=== PATIENT | female | born 1975 | race Caucasian/White ===

== ENCOUNTER 2017-02-23 00:26 | Observation (INO) | payer BC ==
[~2017-02-23] VITALS: Ht 177.8 cm; Wt 142.4 kg
[~2017-02-23 00:26] MED LIST: ACET-1966 PO; ALB18R INH; ALBU2.5V36 INH; AMOX-559 PO; ATEN-65 PO; AZIT-17 PO; BENZ100C4 PO; BUSP10TA95 PO; BUTA1TAB14 PO; CETI-176 PO; CITA-139 PO; FLUT1AER INH; KETO30CA16 IM; NAPR375T44 PO; NYST15CR32 TP; ONDA4TAB PO; ONDA8TAB94 PO; OXYC-865 PO; PRED-1 PO; PRED20TA6 PO; Return to work; SUMA50TA34 PO; TRAM-420 PO; TRIA15CR40 TP; Work Note; [UNRECOGNIZED DRUG - OTHER]; ceFAZolin(*) 2GM/D5W 50ML 50 ML IVPB ONE
[2017-02-23] MEDS ORDERED: ceFAZolin(*) 2GM/D5W 50ML 50 ML IVPB ONE (06:30)
[2017-02-23] MEDS ORDERED: METOCLOPRAMIDE 10 MG/2 ML SDV ONE (06:52)
[2017-02-23] MEDS ORDERED: LIDOCAINE MPF 1% 5 ML VIAL ONE (06:52)
[2017-02-23] MEDS ORDERED: PROPOFOL EMUL(*) 10MG/ML 20 ML 40 ML ONE (06:52)
[2017-02-23] MEDS ORDERED: DEXAMETHASONE SOD 4 MG/ML VIAL ONE (06:52)
[2017-02-23] MEDS ORDERED: ONDANSETRON 4 MG/2 ML VIAL ONE (06:52)
[2017-02-23] MEDS ORDERED: ROCURONIUM BROM 10 MG/ML 10 ML ONE (06:52)
[2017-02-23] MEDS ORDERED: fentaNYL CITR 100 MCG/2 ML AMP ONE ×3 (06:56→11:23)
[2017-02-23 07:08] VITALS: BP 129/77
[2017-02-23] MEDS ORDERED: LIDOCAINE/SOD BICARB 8.4% SYR ID ONE (07:20)
[2017-02-23] MEDS ORDERED: MIDAZOLAM 2 MG/2 ML VIAL IVP ONE (07:20)
[2017-02-23] MEDS ORDERED: FAMOTIDINE 20 MG TAB PO ONE (07:20)
[2017-02-23] MEDS ORDERED: NORMOSOL R SOLN(*) 1000 ML BAG 1,000 ML IV PRN (07:20)
--- NOTE | 2017-02-23 07:37 | EKG ---
FACILITY: [facility] PATIENT NAME: IZZY CORNEJO : [id number] MR: [id number] V: [id number] EXAM DATE: ORDERING PHYSICIAN: PAULINA FISHER TECHNOLOGIST: Martell Mercer Reason : Blood Pressure : / mmHG Vent. Rate : 066 BPM Atrial Rate : 066 BPM P-R Int : 140 ms QRS Dur : 082 ms QT Int : 426 ms P-R-T Axes : 021 003 013 degrees QTc Int : 446 ms Normal sinus rhythm with sinus arrhythmia Normal ECG No previous ECGs available Confirmed by GRIS SANFORD ([id number]) on 02/23/2017 2:56:49 PM Referred By: Confirmed By:GRIS SANFORD
[2017-02-23] MEDS ORDERED: LIDO/EPI 1% MDV 1:100,000 20ML INFIL ONE (08:09)
[2017-02-23] MEDS ORDERED: SUCCINYLCHOL CHL 100MG/5ML SYR IVP ONE (08:30)
[2017-02-23] MEDS ORDERED: LIDOCAINE 2% IV 100 MG/5ML SYR ONE (10:15)
[2017-02-23] MEDS ORDERED: LR(*) 1000 ML BAG 1,000 ML IV PRN (10:44)
[2017-02-23] MEDS ORDERED: ONDANSETRON 4 MG ODT TABDP SL PRN (10:45)
[2017-02-23] MEDS ORDERED: MORPHINE 2 MG/ML SYR IVP PRN (10:45)
--- NOTE | 2017-02-23 10:51 | Post Operative Note ---
Operative Note - ENT Operative Day Date: Feb 23, 2017 Physicians Surgeon: Fernando Anesthesia: GETA Diagnosis Pre-Op Diagnosis: Graves disease Post-Op Diagnosis: same Procedure Procedure(s): Total thyroidectomy Fluids Estimated Blood Loss: 100 ml IVET MRECADO JR, MD Feb 23, 2017 10:51
[2017-02-23 12:05] VITALS: BP 124/73
[2017-02-23] MEDS ORDERED: CETIRIZINE HCL 10 MG TAB PO PRN (14:05)
[2017-02-23] MEDS ORDERED: ceFAZolin(*) 1 GM VIAL 1 GM in NS(*) 0.9% 100 ML ADDVANT BAG 100 ML IVPB SCH (17:00)
[2017-02-23] MEDS: ceFAZolin 1 GM VIAL IVP SCH (17:42)
[2017-02-23 19:20] VITALS: BP 109/61
[2017-02-23] MEDS: CALCIUM CARBONATE 500 MG CHEW PO SCH (20:40)
[2017-02-23 20:41] VITALS: BP 110/53
[2017-02-23] MEDS: busPIRone HCL 5 MG TAB PO SCH (20:41)
[2017-02-24] MEDS: ceFAZolin 1 GM VIAL IVP SCH ×2 (00:17→09:23)
[2017-02-24 04:06] VITALS: BP 102/62
[2017-02-24 07:35] VITALS: BP 94/55
[2017-02-24] MEDS: CALCIUM CARBONATE 500 MG CHEW PO SCH ×3 (07:56→20:57)
[2017-02-24] MEDS: CITALOPRAM HYDROBROM 20 MG TAB PO SCH (07:56)
--- NOTE | 2017-02-24 08:09 | ENT Progress Note ---
Subjective Progress Notes Subjective POD #1 s/p total thyroidectomy. Pain controlled. Catina reg diet. No new concerns. Physical Exam Vital Signs Date Time Temp Pulse Resp B/P (MAP) Pulse Ox O2 Delivery O2 Flow Rate FiO2 02/24/17 04:12 91 Nasal Cannula 0.5 02/24/17 04:06 98.8 73 12 102/62 (75) General Appearance: Alert, No Acute Distress ENT: Other (steris intact, SAMY intact with ss output, no collection) Ca 7.6 Assessment and Plan Problems: (1) Hypocalcemia Assessment & Plan: Patient with normal PTH but calcium drop this morning. Will continue Tums and recheck calcium this afternoon. Plan discharge home pending stable calcium. (2) Graves disease Status: Acute Exam Sepsis Risk: No Definite Risk JESS EARL,IVET Quijano MD Feb 24, 2017 08:09
[2017-02-24] MEDS: PATIENT'S OWN MED INH SCH (09:00)
[2017-02-24] MEDS: ATENOLOL 25 MG TAB PO SCH (09:00)
[2017-02-24 09:10] VITALS: Ht 177.8 cm; Wt 142.4 kg
[2017-02-24] MEDS: busPIRone HCL 5 MG TAB PO SCH ×2 (09:23→20:56)
[2017-02-24] MEDS ORDERED: ONDA4TAB PO (10:21)
[2017-02-24 14:17] VITALS: BP 109/66
[2017-02-24] MEDS: CALCITRIOL 0.25 MCG CAP PO SCH ×2 (14:50→20:56)
[2017-02-24 19:16] VITALS: BP 113/62
--- NOTE | 2017-02-24 20:04 | OPERATIVE REPORT 1 ---
EVENT DATE: February 23, 2017 SURGEON: Huy King MD ANESTHESIOLOGIST: Moses Vargas MD ANESTHESIA: General endotracheal. CHROME POLISHER: Rebecca Payne PREOPERATIVE DIAGNOSIS Graves disease. POSTOPERATIVE DIAGNOSIS Graves disease. PROCEDURE PERFORMED Total thyroidectomy. INDICATIONS Please refer to the preoperative note. DESCRIPTION OF PROCEDURE The patient was positively identified in the preoperative area. She was accompanied there by her . The risks were again explained, but were not limited to bleeding, infection, injury to the recurrent laryngeal nerves, transient or permanent dysphonia, injury to the parathyroid glands, transient or permanent hypocalcemia, and those associated with anesthesia. She acknowledged understanding of those risks. She was then brought back to the operative suite and laid supine on the operative table, and anesthesia was administered. Once the patient was induced , she was prepped and draped in the usual sterile fashion. Of note, the laryngeal nerve monitor was applied to the patient and utilized throughout the case. A favorable neck crease was identified overlying the thyroid gland. An approximately 7 cm incision was then planned and marked. Approximately 2 mL of 1% lidocaine with epinephrine were infiltrated. The aforementioned incision was then made with a 15 blade. The underlying subcutaneous tissue was then dissected with Bovie electrocautery. The platysma muscle was encountered and divided with Bovie electrocautery. Subplatysmal flaps were elevated superiorly to the level of the thyroid notch and inferiorly to the level of the sternal notch. The strap musculature was identified, and this was divided into the long and median raphe. I began with the right lobe. Sternal musculature was carefully elevated off of this. The superior lobe vessels were then skeletonized and then coming across with the Harmonic scalpel. I carefully dissected the lobe from the surrounding connective tissue. Both parathyroid glands were felt to be identified and left in situ. The recurrent laryngeal nerve was identified and confirmed with the nerve monitor. This nerve was followed and chased into its entrance into the trachea. I then came across the inferior lobe vessels with the Harmonic scalpel. The lobe was then rotated medially and divided from the trachea at Wetzel ligament. I then proceeded with the contralateral lobe in a similar fashion. The strap musculature was elevated off of it. The superior lobe vessels were skeletonized and then coming across with the Harmonic scalpel. I then carefully dissected the lobe from the surrounding connective tissue. Both parathyroid glands were felt to be identified and preserved in situ. The recurrent laryngeal nerve was identified and confirmed with the probe. This was chased to its entrance into the trachea. I then came across the inferior lobe vessels with the Harmonic scalpel. The lobe was then rotated medially and divided from the trachea at Wetzel ligament. The specimen was then marked and sent for permanent pathology. The wound was then copiously irrigated with normal saline solution. Valsalva maneuvers were performed. Hemostasis was assumed. Surgicel Fibrillar was placed in the bilateral wound beds. A Dave-Pang drain was placed and secured to the skin with a suture. The platysma and strap musculature were then closed with interrupted chromic stitch. The incision was then closed in a multilayer fashion. The patient was then turned to Anesthesia for emergence. Estimated blood loss was 100 mL. There were no complications. MTDD
[2017-02-24] MEDS: CEFUROXIME AXETIL 250 MG TAB PO SCH (20:57)
[2017-02-25 07:38] VITALS: BP 120/69
--- NOTE | 2017-02-25 08:01 | Hospitalist Depart ---
Discharge Summary Reason for Hosp/Final Diag: (1) Hypocalcemia Hospital Course & Plan: Patient status post total thyroidectomy 02/23. Postoperative hypocalcemia now stable on calcium and rocaltrol. (2) Graves disease Status: Acute Departure Weight (Pounds): 314 Condition: Improved Discharge: Home Time Spent: < 30 min Discharge Instructions Home Meds Active Scripts Ondansetron (ZOFRAN ODT) 4 Mg Tab.rapdis, 1 TAB PO Q12H Y for NAUSEA, #8 TAB.GLENYS 0 Refills Prov:CRIS MONTGOMERY DNP, [facility]- 02/24/17 Citalopram Hydrobromide (CITALOPRAM HBR) 20 Mg Tablet, 1 TAB PO QDAY, #90 TAB 3 Refills Prov:CRIS MONTGOMERY DNP [facility]- 01/13/17 Sumatriptan Succinate (IMITREX) 50 Mg Tablet, 50 MG PO ONCE, #9 TAB 3 Refills Take 1 tablet at onset of migraine. Repeat 1 tablet in 2 hours if necessary. Do not take more than 2/24 hours. Prov:CRIS MONTGOMERY DNP [facility]- 11/18/16 Atenolol (ATENOLOL) 25 Mg Tablet, 1 TAB PO QDAY, #90 TAB 1 Refill Prov:CRIS MONTGOMERY DNP [facility]- 11/18/16 Fluticasone/Vilanterol 100/25 Mcg/Inh (BREO ELLIPTA 100/25 MCG) 1 Each Aer.pow.ba, 1 INH INH QDAY, #1 INH 11 Refills Prov:CRIS MONTGOMERY DNP [facility]- 09/17/16 Reported Medications Acetaminophen (TYLENOL) 325 Mg Tablet, 325 MG PO PRN, TAB 12/26/16 Cetirizine Hcl (ZYRTEC) 10 Mg Tablet, 10 MG PO QDAY Y for ALLERGY SYMPTOMS, TAB 12/26/16 Albuterol Sulfate (VENTOLIN HFA) 18 Gm Inh, 2 PUFF INH Q4-6H Y for CONGESTION, INH 09/02/16 Buspirone Hcl (BUSPIRONE HCL) 10 Mg Tablet, 10 MG PO BID, #20 TAB 09/02/16 Diet: Regular Activity: No Heavy Lifting, No Exertion Special Instructions: Follow up visit next Thursday. No lifting over 15 lbs. Do not soak steris. May shower. JESS EARL,IVET Quijano MD Feb 25, 2017 08:01
[2017-02-25] MEDS ORDERED: CEFU250T11 PO (08:03)
[2017-02-25] MEDS ORDERED: PER PO (08:03)
[2017-02-25] MEDS: CITALOPRAM HYDROBROM 20 MG TAB PO SCH (08:19)
[2017-02-25] MEDS: CALCIUM CARBONATE 500 MG CHEW PO SCH (08:19)
[2017-02-25] MEDS: busPIRone HCL 5 MG TAB PO SCH (08:20)
[2017-02-25] MEDS: ATENOLOL 25 MG TAB PO SCH (08:20)
[2017-02-25] MEDS: CEFUROXIME AXETIL 250 MG TAB PO SCH (08:20)
[2017-02-25] MEDS: PATIENT'S OWN MED INH SCH (08:21)
[2017-02-25] MEDS ORDERED: CA C1TAB6 PO (09:02)
[2017-02-25] MEDS: CALCITRIOL 0.25 MCG CAP PO SCH (09:20)
[2017-02-26] MEDS ORDERED: CALC-515 PO (12:50)
[2017-02-26] MEDS ORDERED: CALC0.5C9 PO (12:50)
== END 2017-02-25 07:59 | disposition home or self-care (01) ==
LOC: OR 00:26 → MED 12:10
PROVIDERS: ADMIT Otolaryngology; ATTEND Otolaryngology
DX: E05.00 Thyrotoxicosis with diffuse goiter without thyrotoxic crisis or storm (principal); I10 Essential (primary) hypertension
CPT/HCPCS: 36415; 60240; 81025; 82310; 83735; 83970; 88307; 93005; G0378; J0330; J0690; J1100; J2001; J2250; J2405; J2704; J2765; J3010

== ENCOUNTER 2017-02-26 11:14 | Emergency (ER) | payer BC ==
[2017-02-24 09:10] VITALS: Ht 177.8 cm; Wt 142.4 kg
[~2017-02-26] VITALS: Ht 177.8 cm; Wt 142.4 kg
[~2017-02-26 11:14] MED LIST changes: +CA C1TAB6 PO; +CEFU250T11 PO; +PER PO; -ceFAZolin(*) 2GM/D5W 50ML 50 ML IVPB ONE
--- NOTE | 2017-02-26 11:25 | ER Report ---
History and Physical Time Seen By MD: 11:24 Hx. of Stated Complaint: PT POST SURGERY FROM THYROIDECTOMY AND IS HAVING TINGLING IN FINGERS, HANDS, AND ARMS. HPI/ROS CHIEF COMPLAINT: Cramping in the fingers and toes HISTORY OF PRESENT ILLNESS: This is a 42-year-old female who presents to the emergency department for tingling and cramping in her fingers and toes. Patient is status-post thyroidectomy 4 days [address] Mercado. Patient states the surgery went well however since the surgery she has had an increase in cramping in her fingers and toes. The cramping does move up into the forearms and then resolves. Dr. Mercado did give us a call today asking us to see her do some basic blood work in addition to calcium and replete her calcium as indicated. Patient has no other complaints at this time no nausea, vomiting, diarrhea, aches, chills no fevers, no urinary discomfort or diarrhea. Surgical site showing no signs of infection. REVIEW OF SYSTEMS: Respiratory: No cough, no dyspnea. Cardiovascular: No chest pain, no palpitations. Gastrointestinal: No vomiting, no abdominal pain. Musculoskeletal: As above. Allergies: Coded Allergies: hydrocodone (Verified Allergy, Severe, ANAPHYLAXIS, 02/26/17) nickel (Verified Allergy, Unknown, 02/26/17) latex (Verified Adverse Reaction, Unknown, RASH, 02/26/17) Uncoded Allergies: HAYFEVER (Allergy, Mild, CONGESTION, SNEEZING, 12/26/16) Home Meds Active Scripts Calcitriol (ROCALTROL) 0.5 Mcg Capsule, 1 CAP PO BID, #28 CAPSULE Prov:IVET MERCADO JR, MD 02/26/17 Oxycodone/Acetaminophen (OXYCODONE/ACETAMINOPHEN 5MG/325 MG) 5 Mg/325 Mg Tab, 1 TAB PO Q4H Y for MILD TO MODERATE PAIN for 7 Days, #15 TAB Prov:IVET MERCADO JR, MD 02/25/17 Cefuroxime Axetil (CEFUROXIME) 250 Mg Tablet, 500 MG PO BID for 7 Days, #14 TAB Prov:IVET MERCADO JR, MD 02/25/17 Ondansetron (ZOFRAN ODT) 4 Mg Tab.rapdis, 1 TAB PO Q12H Y for NAUSEA, #8 TAB.GLENYS 0 Refills Prov:CRIS MONTGOMERY DNP, OSTEOPATHIC NEUROLOGIST-BC 02/24/17 Citalopram Hydrobromide (CITALOPRAM HBR) 20 Mg Tablet, 1 TAB PO QDAY, #90 TAB 3 Refills Prov:CRIS MONTGOMERY DNP, [facility] 01/13/17 Sumatriptan Succinate (IMITREX) 50 Mg Tablet, 50 MG PO ONCE, #9 TAB 3 Refills Take 1 tablet at onset of migraine. Repeat 1 tablet in 2 hours if necessary. Do not take more than 2/24 hours. Prov:CRIS MONTGOMERY DNP, [facility] 11/18/16 Fluticasone/Vilanterol 100/25 Mcg/Inh (BREO ELLIPTA 100/25 MCG) 1 Each Aer.pow.ba, 1 INH INH QDAY, #1 INH 11 Refills Prov:CRIS MONTGOMERY DNP, [facility] 09/17/16 Reported Medications Calcium Carbonate (TUMS) 200 Mg Tab.chew, 2 TAB PO TID, TAB.CHEW 02/26/17 Acetaminophen (TYLENOL) 325 Mg Tablet, 325 MG PO PRN, TAB 12/26/16 Cetirizine Hcl (ZYRTEC) 10 Mg Tablet, 10 MG PO QDAY Y for ALLERGY SYMPTOMS, TAB 12/26/16 Albuterol Sulfate (VENTOLIN HFA) 18 Gm Inh, 2 PUFF INH Q4-6H Y for CONGESTION, INH 09/02/16 Buspirone Hcl (BUSPIRONE HCL) 10 Mg Tablet, 10 MG PO BID, #20 TAB 09/02/16 Discontinued Scripts Atenolol (ATENOLOL) 25 Mg Tablet, 1 TAB PO QDAY, #90 TAB 1 Refill Prov:ULISESCRIS FLORES DNP, [facility] 11/18/16 Past Medical/Surgical History Patient has a past medical and surgical history of migraines, heart palpitations , Graves' disease, on beta blockers, bronchitis, asthma, IBS, diarrhea, cervical biopsy, polyps, right arm fracture, right ankle fracture, lower back pain, with glasses and contacts, thyroidectomy, hyperthyroidism, Graves' disease , depression, ADHD, wisdom teeth extraction. Reviewed Nurses Notes: Yes Hx Smoking: Yes (1 CIGARETT PER DAY FOR 1 YEAR. ) Smoking Status: Former Smoker Exposure to Second Hand Smoke?: Yes (HUSBA [place] SMOKES) Hx Substance Use Disorder: No Hx Alcohol Use: No Constitutional Vital Sign - Last 24 Hours 02/26/17 02/26/17 02/26/17 02/26/17 11:17 11:18 11:30 11:44 Temp 98.1 Pulse 84 75 Resp 18 B/P (MAP) 132/83 (99) 132/83 124/79 (94) Pulse Ox 92 87 O2 Delivery Room Air 02/26/17 02/26/17 02/26/17 02/26/17 11:50 11:59 12:04 12:19 Pulse 70 70 72 Pulse Ox 91 91 90 O2 Flow Rate 1.0 02/26/17 02/26/17 02/26/17 02/26/17 12:34 12:49 13:04 13:19 Pulse 66 67 67 Pulse Ox 92 90 89 89 02/26/17 02/26/17 02/26/17 13:34 13:43 13:49 Pulse 62 64 B/P (MAP) 115/86 (96) Pulse Ox 91 91 Intake and Output 02/26/17 02/26/17 02/27/17 15:00 23:00 07:00 Intake Total 110 ml Balance 110 ml Physical Exam General Appearance: The patient is alert, has no immediate need for airway protection and no current signs of toxicity. Eyes: Pupils equal and round no injection. Respiratory: Chest is non tender, lungs are clear to auscultation. Cardiac: regular rate and rhythm, no murmurs, clicks or rubs. Gastrointestinal: Abdomen is soft and non tender, no masses, bowel sounds normal. Musculoskeletal: Neck: Neck is supple and non tender. Extremities have full range of motion and are non tender. Positive Trousseau sign. Skin: Healing scar to anterior neck, no erythema, no discharge, covered with steri strips. DIFFERENTIAL DIAGNOSIS: After history and physical exam differential diagnosis was considered for anxiety, hypocalcemia, hyperventilation. Medical Decision Making Data Points Result Diagram: 02/26/17 1141 02/26/17 1141 Laboratory Hematology Test 02/26/17 11:41 Red Blood Count 5.48 M/uL (4.17-5.56) Mean Corpuscular Volume 74.8 fL (80.0-96.0) Mean Corpuscular Hemoglobin 24.0 pg (26.0-33.0) Mean Corpuscular Hemoglobin Concent 32.0 g/dL (32.0-36.0) Red Cell Distribution Width 18.1 % (11.5-14.5) Mean Platelet Volume 8.4 fL (7.2-11.1) Neutrophils (%) (Auto) 69.9 % (39.4-72.5) Lymphocytes (%) (Auto) 23.0 % (17.6-49.6) Monocytes (%) (Auto) 3.6 % (4.1-12.4) Eosinophils (%) (Auto) 2.4 % (0.4-6.7) Basophils (%) (Auto) 1.1 % (0.3-1.4) Nucleated RBC Relative Count (auto) 0.0 /100WBC Neutrophils # (Auto) 7.4 K/uL (2.0-7.4) Lymphocytes # (Auto) 2.4 K/uL (1.3-3.6) Monocytes # (Auto) 0.4 K/uL (0.3-1.0) Eosinophils # (Auto) 0.2 K/uL (0.0-0.5) Basophils # (Auto) 0.1 K/uL (0.0-0.1) Nucleated RBC Absolute Count (auto) 0.00 K/uL Sodium Level 139 mmol/L (137-145) Potassium Level 3.7 mmol/L (3.5-5.0) Chloride Level 101 mmol/L (98-107) Carbon Dioxide Level 28 mmol/L (22-31) Blood Urea Nitrogen 11 mg/dl (7-18) Creatinine 0.80 mg/dl (0.52-1.04) Glomerular Filtration Rate Calc > 60.0 Random Glucose 92 mg/dl (75-110) Calcium Level 6.8 mg/dl (8.4-10.2) Magnesium Level 1.4 mg/dl (1.7-2.2) Total Bilirubin 0.4 mg/dl (0.2-1.3) Aspartate Amino Transf (AST/SGOT) 18 U/L (0-35) Alanine Aminotransferase (ALT/SGPT) 23 U/L (0-56) Alkaline Phosphatase 90 U/L (0-126) Total Protein 6.4 gm/dl (6.3-8.2) Albumin 3.3 g/dl (3.5-5.0) Chemistry Test 02/26/17 11:41 White Blood Count 10.5 k/uL (4.5-11.0) Red Blood Count 5.48 M/uL (4.17-5.56) Hemoglobin 13.1 g/dL (12.0-16.0) Hematocrit 41.0 % (34.0-47.0) Mean Corpuscular Volume 74.8 fL (80.0-96.0) Mean Corpuscular Hemoglobin 24.0 pg (26.0-33.0) Mean Corpuscular Hemoglobin Concent 32.0 g/dL (32.0-36.0) Red Cell Distribution Width 18.1 % (11.5-14.5) Platelet Count 251 K/uL (150-450) Mean Platelet Volume 8.4 fL (7.2-11.1) Neutrophils (%) (Auto) 69.9 % (39.4-72.5) Lymphocytes (%) (Auto) 23.0 % (17.6-49.6) Monocytes (%) (Auto) 3.6 % (4.1-12.4) Eosinophils (%) (Auto) 2.4 % (0.4-6.7) Basophils (%) (Auto) 1.1 % (0.3-1.4) Nucleated RBC Relative Count (auto) 0.0 /100WBC Neutrophils # (Auto) 7.4 K/uL (2.0-7.4) Lymphocytes # (Auto) 2.4 K/uL (1.3-3.6) Monocytes # (Auto) 0.4 K/uL (0.3-1.0) Eosinophils # (Auto) 0.2 K/uL (0.0-0.5) Basophils # (Auto) 0.1 K/uL (0.0-0.1) Nucleated RBC Absolute Count (auto) 0.00 K/uL Glomerular Filtration Rate Calc > 60.0 Calcium Level 6.8 mg/dl (8.4-10.2) Magnesium Level 1.4 mg/dl (1.7-2.2) Total Bilirubin 0.4 mg/dl (0.2-1.3) Aspartate Amino Transf (AST/SGOT) 18 U/L (0-35) Alanine Aminotransferase (ALT/SGPT) 23 U/L (0-56) Alkaline Phosphatase 90 U/L (0-126) Total Protein 6.4 gm/dl (6.3-8.2) Albumin 3.3 g/dl (3.5-5.0) EKG/Imaging EKG Interpretation 12 lead EKG: Rhythm: Normal sinus rhythm, 81 bpm. [place]: normal QRS: normal ST segments: No acute ST abnormalities. No significant changes from the 02/23/2017 EKG. ED Course/Re-evaluation Clinical Indication for ER IV: IV Access ED Course The patient was admitted to a room. History and physical were obtained. Differential diagnoses were considered. An IV was started. A CBC, CMP, calcium, magnesium were obtained. Calcium was 6.8 and the rest of the lab studies unremarkable. Patient was given 1 g of calcium gluconate IV. Patient was given 0.50 g calcitriol by mouth. Patient states she was feeling much better after the calcium was infused, patient had no other questions or concerns at this time. I did speak with Dr. Mercado as noted below. Dr. Mercado's nurse did call the patient and changed prescriptions, the patient will follow up Thursday.. Patient had no other questions or concerns and was discharged home. Patient was also encouraged to return to emergency Department with any other concerns she may have. 02/26/2017 12:17:04 pm I did speak with Dr. Mercado and he said go ahead and administer 0.25 g of calcitriol orally and his nurse Flor will call the patient and change her vitamin D and calcium prescriptions. Decision to Disposition Date: Feb 26, 2017 Decision to Disposition Time: 13:52 Depart Departure Latest Vital Signs Vital Signs Date Time Temp Pulse Resp B/P (MAP) Pulse Ox O2 Delivery O2 Flow Rate FiO2 02/26/17 13:49 64 91 02/26/17 13:43 115/86 (96) 02/26/17 11:50 1.0 02/26/17 11:18 98.1 18 Room Air Impression: Primary Impression: Hypocalcemia Additional Impression: S/P thyroidectomy Condition: Improved Disposition: HOME OR SELF-CARE Referrals: CRIS MONTGOMERY DNP, OSTEOPATHIC NEUROLOGIST-BC (PCP) Patient Instructions: Hypocalcemia (ED), Total Thyroidectomy (DC) Additional Instructions: Drink plenty of fluids. Get plenty of rest. If you have not heard from Dr. Mercado's nurse by 3pm today, call his office to follow up. Continue with your current medications. May return to the emergency department for any other concerns or worsening symptoms. Problem Qualifiers VINCENZO PALAFOX OSTEOPATHIC NEUROLOGIST-BC Feb 26, 2017 11:25
[2017-02-26 11:50] LABS: PLATELET COUNT, AUTOMATED 251 K/uL (150-450)
[2017-02-26] MEDS ORDERED: CALCIUM GLUC(*)10% 100MG/ML VL 1,000 MG in NS(*) 0.9% 100 ML BAG 100 ML IVPB ONE (12:05)
[2017-02-26] MEDS ORDERED: CALCITRIOL 0.25 MCG CAP PO SCH (12:15)
[2017-02-26] MEDS ORDERED: CALC-515 PO (12:50)
[2017-02-26] MEDS ORDERED: CALC0.5C9 PO (12:50)
[2017-02-26 13:43] VITALS: BP 115/86
--- NOTE | 2017-02-26 13:48 | EKG ---
FACILITY: [facility] PATIENT NAME: IZZY CORNEJO : [id number] MR: [id number] V: [id number] EXAM DATE: ORDERING PHYSICIAN: VINCENZO PALAFOX TECHNOLOGIST: ANN Mercer Reason : LOW CA Blood Pressure : / mmHG Vent. Rate : 071 BPM Atrial Rate : 071 BPM P-R Int : 152 ms QRS Dur : 082 ms QT Int : 448 ms P-R-T Axes : 029 010 017 degrees QTc Int : 486 ms Normal sinus rhythm with sinus arrhythmia Low voltage QRS Prolonged QT Abnormal ECG When compared with ECG of 23-FEB-2017 07:08, No significant change was found Confirmed by GRIS SANFORD ([id number]) on 02/27/2017 2:32:04 AM Referred By: Confirmed By:GRIS SANFORD
[2017-03-02] MEDS ORDERED: LEVO150T72 PO (15:31)
== END 2017-02-26 14:02 | disposition home or self-care (01) ==
LOC: ER 11:18
DX: E83.51 Hypocalcemia (principal); E89.0 Postprocedural hypothyroidism
CPT/HCPCS: 36415; 83735; 85025; 93005; 96365; 96366; 99283; J0610; J7050; 82040; 82247; 82310; 82374; 82435; 82565; 82947; 84075; 84132; 84155; 84295; 84450; 84460; 84520

== ENCOUNTER → 2017-03-02 | Outpatient (CLI) | payer BC ==
[2017-02-24 09:10] VITALS: BMI 45.0
[~2017-03-02] MED LIST changes: +CALC-515 PO; +CALC0.5C9 PO; +LEVO150T72 PO
== END ==
LOC: LAB 08:06
PROVIDERS: ATTEND Otolaryngology
DX: E83.51 Hypocalcemia (principal)
CPT/HCPCS: 36415; 82310

== ENCOUNTER → 2017-03-09 | Outpatient (CLI) | payer BC ==
[2017-02-24 09:10] VITALS: BMI 45.0
== END ==
LOC: LAB 08:01
PROVIDERS: ATTEND Otolaryngology
DX: E83.51 Hypocalcemia (principal)
CPT/HCPCS: 36415; 82310

== ENCOUNTER 2017-03-16 17:33 | Emergency (ER) | payer BC ==
[2017-02-24 09:10] VITALS: Ht 177.8 cm; Wt 142.4 kg
[~2017-03-16] VITALS: Ht 177.8 cm; Wt 142.4 kg
[2017-03-16 19:05] VITALS: BP 136/89
[2017-03-17] MEDS ORDERED: GUAI120L3 PO (09:09)
[2017-03-17] MEDS ORDERED: PRED20TA6 PO (09:09)
[2017-03-17] MEDS ORDERED: DOXY-179 PO (09:09)
[2017-03-17] MEDS ORDERED: ALBU2.5V36 INH (09:11)
[2017-03-24] MEDS ORDERED: Work Note (09:51)
[2017-03-24] MEDS ORDERED: ALBU2.5V36 INH ×2 (09:59→10:05)
== END 2017-03-16 19:54 | disposition left against medical advice (07) ==
LOC: ER 19:20
DX: R05 Cough (principal)

== ENCOUNTER → 2017-03-17 | Outpatient (CLI) | payer BC ==
[2017-02-24 09:10] VITALS: BMI 45.0
[~2017-03-17] MED LIST changes: +DOXY-179 PO; +GUAI120L3 PO
== END ==
LOC: LAB 08:23
PROVIDERS: ATTEND Otolaryngology
DX: E83.51 Hypocalcemia (principal)
CPT/HCPCS: 36415; 82310

== ENCOUNTER → 2017-03-24 | Outpatient (CLI) | payer BC ==
[2017-02-24 09:10] VITALS: BMI 45.0
[2017-03-24 10:08] LABS: PLATELET COUNT, AUTOMATED 308 K/uL (150-450)
--- NOTE | 2017-03-24 11:09 | RADIOLOGY IMAGING REPORT ---
FACILITY: [facility] [place] PATIENT NAME: Marianna Glover : 1975 MR: [id number] V: [id number] EXAM DATE: ORDERING PHYSICIAN: CRIS MONTGOMERY TECHNOLOGIST: Location: [facility] Patient: Marianna Glover : 1975 Visit/Account:[id number] Date of Sevice: 03/24/2017 EXAMINATION: PA and Lateral Chest 03/24/2017 10:09 AM HISTORY: Cough x1 week, chest tightness COMPARISON: None FINDINGS: Cardiomediastinal contours: Normal Lungs and pleura: Normal Bones/soft tissues: Rounded just over 1 cm density projects just below the anterior end of the right sixth rib on the frontal view, not well localized in the lateral projection. IMPRESSION: 1. Rounded just over 1 cm density projecting over the right upper quadrant on the frontal view. Thi s is possibly external artifact such as simply a button. Calcification such as a fibroadenoma in the breast would be possible. Hepatic calcification or even a stone within an ectopic gallbladder might be possible. If this is a basilar lung nodule not well seen in the lateral this would presumptively be a granuloma. My suspicion that this is clinically significant is low. 2. Otherwise unremarkable chest. Report Dictated By: Bairon Farr MD at 03/24/2017 11:00 AM Report E-Signed By: Bairon Farr MD at 03/24/2017 11:04 AM WSN:[email or web address]
== END ==
LOC: RAD 09:43
PROVIDERS: ATTEND Nurse Practitioner Primary Care
DX: R05 Cough (principal)
CPT/HCPCS: 36415; 71046; 82040; 82247; 82310; 82374; 82435; 82565; 82947; 84075; 84132; 84155; 84295; 84450; 84460; 84520; 85025

== ENCOUNTER → 2017-04-29 | Outpatient (CLI) | payer BC ==
[2017-02-24 09:10] VITALS: BMI 45.0
[~2017-04-29] MED LIST changes: +OMEP-125 PO; +RANI150C17 PO; +SINCALIDE 5 MCG VIAL INJ ONE; +WATER FOR INJ,STERILE 20 ML 20 ML ONE
--- NOTE | 2017-04-29 11:19 | RADIOLOGY IMAGING REPORT ---
[place] [facility] [place]: Marianna Glover : 1975 MR: [id number] V: [id number] EXAM DATE: ORDERING PHYSICIAN: CRIS MONTGOMERY TECHNOLOGIST: Location: [facility] [place] Patient: Marianna Glover : 1975 Visit/Account:[id number] Date of Sevice: 04/29/2017 Nuclear Medicine HIDA Scan with Kinevac Stimulation INDICATION: Right upper quadrant pain COMPARISON STUDIES: None available TECHNIQUE: 6.2 mCi Tc99m mebrofenin was injected intravenously. Multiple sequential gamma camera mireya ges of the abdomen were obtained for 60 minutes. At that time, Kinevac was injected intravenously and an additional 30 minutes of gamma camera imaging data was acquired. A computer-generated region of i nterest was placed around the gallbladder and time-activity curve for the gallbladder was derived. Th e gallbladder ejection fraction was calculated. FINDINGS: Liver uptake and excretion: normal Time to appearance: Bile ducts: 6 minutes. Gallbladder: 7 minutes. Duodenum: 40 minutes. Post IV Kinevac: 30 minute images following the injection of CCK demonstrate minimal decrease in the radiopharmaceu tical activity overlying the gallbladder. Ejection fraction = 31 %, (normal range > 35%). IMPRESSION: 1. Gallbladder ejection fraction is mildly abnormal at 31%. The findings can be seen with etiologie s such as dyskinesia or chronic cholecystitis. Report Dictated By: Daniel Christian MD at 04/29/2017 11:07 AM Report E-Signed By: Daniel Christian MD at 04/29/2017 11:13 AM WSN:[email or web address]
== END ==
LOC: NUC 01:54
PROVIDERS: ATTEND Nurse Practitioner Primary Care
DX: R93.2 Abnormal findings on diagnostic imaging of liver and biliary tract (principal)
CPT/HCPCS: 78226; A9537; J2805

== ENCOUNTER → 2017-05-01 | Outpatient (CLI) | payer BC ==
[2017-02-24 09:10] VITALS: BMI 45.0
[~2017-05-01] MED LIST changes: -SINCALIDE 5 MCG VIAL INJ ONE; -WATER FOR INJ,STERILE 20 ML 20 ML ONE
[2017-05-01 13:46] LABS: PLATELET COUNT, AUTOMATED 263 K/uL (150-450)
--- NOTE | 2017-05-01 17:11 | RADIOLOGY IMAGING REPORT ---
FACILITY: [facility] [place] PATIENT NAME: Marianna Glover : 1975 MR: [id number] V: [id number] EXAM DATE: ORDERING PHYSICIAN: CRIS MONTGOMERY TECHNOLOGIST: Location: [facility] Patient: Marianna Glover : 1975 Visit/Account:[id number] Date of Sevice: 05/01/2017 EXAMINATION: Limited right upper quadrant ultrasound 05/01/2017 3:38 PM HISTORY: RUQ abdominal pain. COMPARISON STUDIES: HIDA scan with cholecystokinin 04/29/2017 FINDINGS: Gallbladder: no stones or sludge. Liver: Borderline prominent. Mildly increased echogenicity. No cirrhotic features sonographically. Common duct: 4 to 5 mm Pancreas: negative Right kidney: 1.4 cm parapelvic cyst in the mid to upper aspect. Upper abdominal aorta and IVC: negative Ascites: none IMPRESSION: 1. No acute abnormality of the gallbladder or biliary ductal system. 2. Mild fatty liver. Report Dictated By: Bairon Farr MD at 05/01/2017 5:03 PM Report E-Signed By: Bairon Farr MD at 05/01/2017 5:06 PM WSN:[id number]
== END ==
LOC: LAB 13:22
PROVIDERS: ATTEND Nurse Practitioner Primary Care
DX: K76.0 Fatty (change of) liver, not elsewhere classified (principal); N28.1 Cyst of kidney, acquired
CPT/HCPCS: 36415; 76705; 82040; 82150; 82247; 82310; 82374; 82435; 82565; 82947; 83690; 84075; 84132; 84155; 84295; 84450; 84460; 84520; 85025; 86677

== ENCOUNTER → 2017-05-20 | Outpatient (CLI) | payer BC ==
[2017-02-24 09:10] VITALS: BMI 45.0
== END ==
LOC: LAB 10:51
PROVIDERS: ATTEND Nurse Practitioner Primary Care
DX: R10.11 Right upper quadrant pain (principal); K76.0 Fatty (change of) liver, not elsewhere classified
CPT/HCPCS: 36415; 82728; 83540; 83550; 86677; 86704; 86706; 86708; 86709; 86803; 87340

== ENCOUNTER 2017-06-04 01:55 | Day surgery (SDC) | payer BC ==
[2017-02-24 09:10] VITALS: Ht 177.8 cm; Wt 144.2 kg
[~2017-06-04] VITALS: Ht 177.8 cm; Wt 144.2 kg
[2017-06-04] VITALS (8 sets, daily range): BP systolic 112–131; BP diastolic 79–89
[~2017-06-04 01:55] MED LIST changes: +AMPICILLIN/SULBACT (*) 3 GM VL 3 GM in NS(*) 0.9% 100 ML BAG 100 ML IVPB ONE; +INDOCYANINE GREEN 25 MG VIAL IVP ONE
[2017-06-04] MEDS ORDERED: DEXAMETHASONE SOD 4 MG/ML VIAL ONE (08:07)
[2017-06-04] MEDS ORDERED: METOCLOPRAMIDE 10 MG/2 ML SDV ONE (08:07)
[2017-06-04] MEDS ORDERED: ONDANSETRON 4 MG/2 ML VIAL ONE (08:07)
[2017-06-04] MEDS ORDERED: LIDOCAINE MPF 1% 5 ML VIAL ONE (08:07)
[2017-06-04] MEDS ORDERED: PROPOFOL EMUL(*) 10MG/ML 20 ML 40 ML ONE (08:07)
[2017-06-04] MEDS ORDERED: fentaNYL CITR 250 MCG/5 ML AMP ONE (08:11)
[2017-06-04] MEDS ORDERED: SUGAMMADEX SOD 500 MG/5 ML SDV ONE (08:30)
[2017-06-04 08:31] LABS: PLATELET COUNT, AUTOMATED 291 K/uL (150-450)
[2017-06-04] MEDS ORDERED: FAMOTIDINE 20 MG TAB PO ONE (08:50)
[2017-06-04] MEDS ORDERED: NORMOSOL R SOLN(*) 1000 ML BAG 1,000 ML IV PRN (08:50)
[2017-06-04] MEDS ORDERED: AMPICILLIN/SULBACT (*) 3 GM VL 3 GM in NS(*) 0.9% 100 ML BAG 100 ML IVPB ONE (08:50)
[2017-06-04] MEDS ORDERED: LIDOCAINE/SOD BICARB 8.4% SYR ID ONE (08:50)
[2017-06-04] MEDS ORDERED: INDOCYANINE GREEN 25 MG VIAL IVP ONE (08:50)
[2017-06-04] MEDS ORDERED: ROPIVACAINE 0.5% 20 ML VIAL ONE (09:43)
[2017-06-04] MEDS ORDERED: MIDAZOLAM 2 MG/2 ML VIAL IVP PRN (10:20)
[2017-06-04] MEDS ORDERED: ACETAMINOPHEN(*)1000 MG/100 ML 100 ML IVPB ONE (10:24)
[2017-06-04] MEDS ORDERED: DOCU-416 PO (12:23)
[2017-06-04] MEDS ORDERED: OXYC-854 PO (12:23)
[2017-06-04] MEDS ORDERED: fentaNYL CITR 100 MCG/2 ML AMP ONE ×2 (12:23→12:37)
--- NOTE | 2017-06-04 12:27 | Short(Outpt) Discharge Summary ---
Discharge Summary Reason for Hosp/Final Diag: (1) Biliary dyskinesia Status: Chronic Hospital Course & Plan: Robotic cholecystectomy and lysis of adhesions completed without problems. Departure Discharge to: Home, Self Care Discharge Instructions Home Meds Active Scripts Docusate Sodium (COLACE) 100 Mg Capsule, 1 CAP PO BID, #30 CAP 0 Refills TAKE WITH A FULL GLASS OF WATER Prov:GRIS CRUZ MD 06/04/17 Oxycodone Hcl/Acet 5/325 Mg (ENDOCET 5-325 TABLET) 1 Each Tablet, 1-2 TAB PO Q4H Y for PAIN, #30 TAB 0 Refills Prov:GRIS CRUZ MD 06/04/17 Ondansetron (ZOFRAN ODT) 4 Mg Tab.rapdis, 1 TAB PO Q12H Y for NAUSEA, #8 TAB.GLENYS 3 Refills Prov:CRIS MONTGOMERY DNP, FNP-BC 05/29/17 Albuterol Sulfate (VENTOLIN HFA) 18 Gm Inh, 2 PUFF INH Q4-6H Y for CONGESTION, # 1 INH 5 Refills Prov:CRIS MONTGOMERY DNP, FNP-BC 04/14/17 Buspirone Hcl (BUSPIRONE HCL) 10 Mg Tablet, 1 TAB PO BID, #180 TAB 3 Refills Prov:CRIS MONTGOMERY DNP, FNP-BC 04/14/17 Albuterol Sulfate 0.083% (ALBUTEROL SULFATE 0.083%) 2.5 Mg/3 Ml Vial.neb, 2.5 MG INH 2-3XD Y for WHEEZING, #30 INH 0 Refills Prov:CRIS MONTGOMERY DNP, FNP-BC 03/24/17 Levothyroxine Sodium (SYNTHROID) 150 Mcg Tablet, 150 MCG PO QDAY for 90 Days, # 90 TAB Prov:IVET MERCADO JR, MD 03/02/17 Citalopram Hydrobromide (CITALOPRAM HBR) 20 Mg Tablet, 1 TAB PO QDAY, #90 TAB 3 Refills Prov:CRIS MONTGOMERY DNP, FNP-BC 01/13/17 Sumatriptan Succinate (IMITREX) 50 Mg Tablet, 50 MG PO ONCE, #9 TAB 3 Refills Take 1 tablet at onset of migraine. Repeat 1 tablet in 2 hours if necessary. Do not take more than 2/24 hours. Prov:CRIS MONTGOMERY DNP, STOCK HANDLER-BC 11/18/16 Fluticasone/Vilanterol 100/25 Mcg/Inh (BREO ELLIPTA 100/25 MCG) 1 Each Aer.pow.ba, 1 INH INH QDAY, #1 INH 11 Refills Prov:CRIS MONTGOMERY DNP, ST[employer]-BC 09/17/16 Reported Medications Acetaminophen (TYLENOL) 325 Mg Tablet, 325 MG PO PRN, TAB 12/26/16 Discontinued Reported Medications Calcium Carbonate (TUMS) 200 Mg Tab.chew, 2 TAB PO TID, TAB.CHEW 02/26/17 Cetirizine Hcl (ZYRTEC) 10 Mg Tablet, 10 MG PO QDAY Y for ALLERGY SYMPTOMS, TAB 12/26/16 Discontinued Scripts Ranitidine Hcl (RANITIDINE HCL) 150 Mg Capsule, 1 CAP PO QDAY for 10 Days, #10 CAPSULE 0 Refills Prov:CRIS MONTGOMERY DNP, STOCK HAND[employer]ER-BC 05/01/17 Omeprazole (OMEPRAZOLE) 20 Mg Capsule.dr, 1 CAP PO BID for 30 Days, #60 CAP 1 Refill Prov:CRIS MONTGOMERY DNP, STOCK HAND[employer]ER-BC 05/01/17 Calcitriol (ROCALTROL) 0.5 Mcg Capsule, 1 CAP PO BID, #28 CAPSULE Prov:IVET MERACDO JR, MD 02/26/17 Follow up Referrals: General Surgery - 06/23/17 @ Surgery, General with Gris Cruz Md You have a follow up appointment scheduled with Dr. Cruz on 06/23/17, at 11: 45am. Diet: Regular Activity: No Heavy Lifting Special Instructions: You may remove the white surgical dressings on 06/06/17, then you can shower. After showering, leave the incisions open to air but leave the steristrips in place until they fall off on their own. Do not immerse the incisions for 2 weeks. Avoid any activity that involves straining or lifting more than 10 pounds for 2 weeks. GRIS CRUZ MD Jun 04, 2017 12:27
[2017-06-04] MEDS ORDERED: PROMETHAZINE 25 MG/ML 1 ML AMP ONE (12:40)
--- NOTE | 2017-06-04 12:43 | Post Operative Progress Note ---
Post Operative Progress Note Date: Jun 04, 2017 Time: 12:27 Surgeon: Anthony Dictation number: [id number] Anesthesia: GETA by Dr. Vargas Pre-Op Diagnosis: Postprandial RUQ abdominal pain Biliary dyskinesia Post-Op Diagnosis: FREDERICK Findings: None Procedure(s): Robotic adhesiolysis and cholecystectomy Specimen Removed:(May be N/A): GB and contents Complications: None Fluids: See anesthesia record Estimated Blood Loss: Minimal Date OP Note Dictated: Jun 04, 2017 Time OP Note Dictated: 12:29 GRIS VALDEZ MD Jun 04, 2017 12:43
--- NOTE | 2017-06-04 18:53 | OPERATIVE REPORT 1 ---
EVENT DATE: June 04, 2017 SURGEON: Mert Cruz MD ANESTHESIOLOGIST: Mert Vargas MD ANESTHESIA: General endotracheal anesthesia. PREOPERATIVE DIAGNOSES 1. Postprandial right upper quadrant abdominal pain. 2. Biliary dyskinesia, ejection fraction of 31% on HIDA. POSTOPERATIVE DIAGNOSES 1. Postprandial right upper quadrant abdominal pain. 2. Biliary dyskinesia, ejection fraction of 31% on HIDA. PROCEDURES PERFORMED 1. Robotic cholecystectomy. 2. Adhesiolysis. COMPLICATIONS None. CONDITION Stable. BLOOD LOSS Minimal. FINDINGS Patient had some adhesions of omentum to her right upper quadrant abdominal wall that were in the way of getting my right-most instrument up to the gallbladder without unduly tearing on them, and so they were taken down. The gallbladder looked chronically inflamed, but not acutely. There were adhesions to the gallbladder along its length. INDICATIONS This is a 42-year-old female who was referred to me with postprandial right upper quadrant abdominal pain that has been going on for quite some time, but is slowly getting worse. Right upper quadrant ultrasound was unremarkable, but a HIDA scan revealed a low ejection fraction of 31%. DESCRIPTION OF PROCEDURE The patient was brought to the operating room and placed supine on the operating table. General endotracheal anesthesia was administered, and her abdomen was prepped and draped in a sterile fashion. A timeout was completed. I injected the infraumbilical skin with 0.5% ropivacaine plain. I made a curvilinear smiley face type incision in the infraumbilical rim and dissected down through the dermis and into the subcutaneous fat. I dissected bluntly into the fascia and made a vertical incision in the midline fascia, grasped the fascial edges with Freda clamps, and then bluntly entered the peritoneal cavity with my finger. I placed two interrupted 0 Vicryl sutures transversely through the vertical fascial defect and inserted the 12 mm robotic Guillermo port through this wound and secured it in place with sutures. I insufflated the abdomen to a pressure of 15 mmHg and inserted the robotic camera into the patient's abdominal cavity. I then placed two 8 mm robotic ports in the left mid abdomen and left upper quadrant and a third 8 mm port in the right mid abdomen, all under direct visualization. I then docked the robot and targeted it. I then inserted the Cadiere grasper in the right port and a hook in the left medial port and the ProGrasp into the left lateral port. Next, after scrubbing out and going to the console, I took down the adhesions that were in the right upper quadrant very easily with scissors. I then grasped the fundus of the gallbladder and retracted it towards the patient's right shoulder. There were adhesions to the gallbladder which I took down with the hook electrocautery. Once I could see the infundibulum, this was grasped and retracted towards the patient's right hip. I then divided the peritoneum overlying the infundibulum and up both the medial and lateral aspects of the gallbladder. I then dissected to the triangle of Calot with the hook and identified the cystic artery, which was in the way of the cystic duct, and so once I dissected this free, I clipped it proximally and distally and divided it between clips. This allowed me to see very well the infundibular-cystic duct junction. I cleaned off the cystic duct circumferentially and used the Firefly to confirm it was the cystic duct and that it was well away from the common bile duct. I then clipped the cystic duct with three clips distally and one clip at the infundibular-cystic duct junction and divided the cystic duct between the two clips closest to the gallbladder. I then retracted the infundibulum toward the anterior abdominal wall and divided the posterior attachments to the gallbladder, it from the gallbladder fossa, then placed it in a surgical specimen retrieval bag, and removed it from the abdomen through the umbilical port site after moving the camera into the left mid abdominal port. I then irrigated and dried the right upper quadrant and inspected the gallbladder fossa as well as the cystic duct and artery stumps, and there was no bleeding or bile leaks from anywhere. I made sure I removed all of my irrigation fluid. There was no blood or fluid above the liver or in the Marie pouch. I then removed all the robotic instruments, undocked the robot, desufflated the abdomen, and removed all the ports. I then closed the midline fascia with running 0 Vicryl sutures and then tied all of these down with good reapproximation of the fascial edges and no remaining fascial defect. I then closed the skin at each port site with 4-0 Monocryl subcuticular sutures. The skin was cleaned and dried, and Steri-Strips were applied, followed by sterile surgical dressings. The patient was awakened and extubated in the operating room and transported to the recovery room in stable condition having tolerated the procedure without any apparent problems. AMIRA
== END 2017-06-04 13:35 | disposition home or self-care (01) ==
LOC: OR 01:55
PROVIDERS: ATTEND Surgery
DX: K82.8 Other specified diseases of gallbladder (principal); R10.11 Right upper quadrant pain
CPT/HCPCS: 36415; 47600; 81025; 85025; 88304; 94667; J0131; J0295; J1100; J2001; J2250; J2405; J2550; J2704; J2765; J2795; J3010; J7050; S2900

== ENCOUNTER → 2017-06-25 | Outpatient (CLI) | payer BC ==
[2017-02-24 09:10] VITALS: BMI 45.0
[~2017-06-25] MED LIST changes: -AMPICILLIN/SULBACT (*) 3 GM VL 3 GM in NS(*) 0.9% 100 ML BAG 100 ML IVPB ONE; -CITA-139 PO; +CITA-145 PO; +DOCU-416 PO; -INDOCYANINE GREEN 25 MG VIAL IVP ONE; +OXYC-854 PO
== END ==
LOC: RESP 03:29
PROVIDERS: ATTEND Nurse Practitioner Primary Care
DX: G47.33 Obstructive sleep apnea (adult) (pediatric) (principal)

== ENCOUNTER → 2017-08-22 | Outpatient (CLI) | payer BC ==
[2017-02-24 09:10] VITALS: BMI 45.0
[~2017-08-22] MED LIST changes: +KET10 PO; +KETO30CA16 IJ; +[UNRECOGNIZED DRUG - OTHER]
== END ==
LOC: RESP 20:42
PROVIDERS: ATTEND Nurse Practitioner Primary Care
DX: G47.36 Sleep related hypoventilation in conditions classified elsewhere (principal); G47.33 Obstructive sleep apnea (adult) (pediatric)

== ENCOUNTER → 2017-09-11 | Outpatient (CLI) | payer BC ==
[2017-02-24 09:10] VITALS: BMI 45.0
== END ==
LOC: LAB 11:08
PROVIDERS: ATTEND Internal Medicine
DX: E05.00 Thyrotoxicosis with diffuse goiter without thyrotoxic crisis or storm (principal)
CPT/HCPCS: 36415; 84439; 84443; 84481

== ENCOUNTER → 2017-10-26 | Outpatient (CLI) | payer BC ==
[2017-02-24 09:10] VITALS: BMI 45.0
== END ==
LOC: LAB 19:49
PROVIDERS: ATTEND Nurse Practitioner Primary Care
DX: E65 Localized adiposity (principal)
CPT/HCPCS: 36415; 82024; 82533

== ENCOUNTER → 2017-11-02 | Outpatient (CLI) | payer BC ==
[2017-02-24 09:10] VITALS: BMI 45.0
[~2017-11-02] MED LIST changes: +DICL100G39 TOP
== END ==
LOC: LAB 08:15
PROVIDERS: ATTEND Nurse Practitioner Primary Care
DX: R22.1 Localized swelling, mass and lump, neck (principal)
CPT/HCPCS: 82533

== ENCOUNTER → 2017-11-25 | Outpatient (CLI) | payer BC ==
[2017-02-24 09:10] VITALS: BMI 45.0
--- NOTE | 2017-11-25 16:12 | RADIOLOGY IMAGING REPORT ---
FACILITY: [facility] PATIENT NAME: Marianna Glover : 1975 MR: [id number] V: [id number] EXAM DATE: ORDERING PHYSICIAN: CRIS MONTGOMERY TECHNOLOGIST: Location: [facility] [place] Patient: Marianna Glover : 1975 Visit/Account:[id number] Date of Sevice: 11/25/2017 Exam type: THORACIC SPINE 3 VIEWS History: Bump on back of neck with pain that radiates down Comparison: Two view chest March 24, 2017 and cervical spine series performed today. Findings: There mild to moderate spondylotic changes of the thoracic spine that appears similar to the prior est. There is no gross evidence of acute fractures or subluxations. IMPRESSION: 1. Mild to moderate spondylotic changes of the thoracic spine Report Dictated By: Sarai Cartagena MD at 11/25/2017 4:04 PM Report E-Signed By: Sarai Cartagena MD at 11/25/2017 4:07 PM WSN:[email or web address]
--- NOTE | 2017-11-25 16:14 | RADIOLOGY IMAGING REPORT ---
FACILITY: [facility] [place] PATIENT NAME: Marianna Glover : 1975 MR: [id number] V: [id number] EXAM DATE: ORDERING PHYSICIAN: CRIS MONTGOMERY TECHNOLOGIST: Location: [facility] Patient: Marianna Glover : 1975 Visit/Account:[id number] Date of Sevice: 11/25/2017 Exam type: CERVICAL SPINE MIN 4 VIEW History: Bump on back of neck with pain that radiates down Comparison: None. Findings: C1-7 are seen in gross anatomic alignment other than straightening of normal cervical lordosis can be seen with muscle spasm or patient positioning. There is no evidence of acute fractures or subluxati ons.. A radiopaque mass is not identified along the posterior aspect of the neck IMPRESSION: 1. Straightening of normal cervical doses which can be seen with muscle spasm versus patient positio jose m No radiopaque masses identified along the posterior aspect of the neck. If this remains a strong cli nical concern CT or MR may be helpful Report Dictated By: Sarai Cartagena MD at 11/25/2017 4:07 PM Report E-Signed By: Sarai Cartagena MD at 11/25/2017 4:10 PM WSN:[email or web address]
== END ==
LOC: RAD 13:56
PROVIDERS: ATTEND Nurse Practitioner Primary Care
DX: M40.46 Postural lordosis, lumbar region (principal)
CPT/HCPCS: 72050; 72072

== ENCOUNTER → 2017-12-02 | Outpatient (CLI) | payer BC ==
[2017-02-24 09:10] VITALS: BMI 45.0
[~2017-12-02] MED LIST changes: +FLU60VIA41 IM; +FLUO-202 PO
[2017-12-02 11:19] LABS: LDL CHOLESTEROL 97 mg/dl
== END ==
LOC: LAB 10:29
PROVIDERS: ATTEND Nurse Practitioner Primary Care
DX: Z13.220 Encounter for screening for lipoid disorders (principal); E66.01 Morbid (severe) obesity due to excess calories
CPT/HCPCS: 36415; 82040; 82247; 82310; 82374; 82435; 82465; 82565; 82947; 83718; 84075; 84132; 84155; 84295; 84450; 84460; 84478; 84520

== ENCOUNTER → 2017-12-30 | Outpatient (CLI) | payer BC ==
[2017-02-24 09:10] VITALS: BMI 45.0
[~2017-12-30] MED LIST changes: +LEVO750T27 PO
== END ==
LOC: LAB 08:52
PROVIDERS: ATTEND Internal Medicine
DX: E89.0 Postprocedural hypothyroidism (principal)
CPT/HCPCS: 36415; 84436; 84439; 84443; 84481

== ENCOUNTER 2018-01-14 08:27 | Emergency (ER) | payer BC ==
[2017-02-24 09:10] VITALS: Wt 150.6 kg
--- NOTE | 2018-01-14 08:30 | ER Report ---
History and Physical Time Seen By MD: 08:30 HPI/ROS CHIEF COMPLAINT: Right ear foreign body, cough HISTORY OF PRESENT ILLNESS: Patient is a 42-year-old female here with complaints of a right ear foreign body suspected to be a cotton swab retained this morning and a worsening cough in the setting of a recent diagnosis of bronchitis status post treatment with prednisone for asthma exacerbation. Patient reports that she was attempting to clean her ear this morning with a cotton swab Q-tip but a part of the cotton broke off and was stuck in her ear. Patient is in no acute respiratory distress at time of evaluation maintaining oxygen saturations of 94% on room air. Lungs clear to auscultation. REVIEW OF SYSTEMS: Constitutional: No fever, no chills. Eyes: No discharge. ENT: Right ear suspected retained foreign body Cardiovascular: No chest pain, no palpitations. Respiratory: + cough, + shortness of breath with hx of asthma. Gastrointestinal: No abdominal pain, no vomiting. Genitourinary: No hematuria. Musculoskeletal: No back pain. Skin: No rashes. Neurological: No headache. Allergies: Coded Allergies: hydrocodone (Verified Allergy, Severe, ANAPHYLAXIS, 01/14/18) nickel (Verified Allergy, Unknown, RASH, 01/14/18) latex (Verified Adverse Reaction, Unknown, RASH, 01/14/18) Uncoded Allergies: HAYFEVER (Allergy, Mild, CONGESTION, SNEEZING, 12/26/16) Home Meds Active Scripts Sumatriptan Succinate (IMITREX) 50 Mg Tablet, 50 MG PO ONCE, #9 TAB 3 Refills Take 1 tablet at onset of migraine. Repeat 1 tablet in 2 hours if necessary. Do not take more than 2/24 hours. Prov:CRIS MONTGOMERY DNP, FNP-BC 12/23/17 Fluoxetine Hcl (PROZAC) 20 Mg Capsule, 1 CAP PO QDAY for 90 Days, #90 CAPSULE 0 Refills Prov:CRIS MONTGOMERY DNP, FNP-BC 12/02/17 Levothyroxine Sodium (SYNTHROID) 150 Mcg Tablet, 175 MCG PO QDAY for 90 Days, #90 TAB Prov:CRIS MONTGOMERY DNP, FNP-BC 12/02/17 Diclofenac Sodium 1% Gel (VOLTAREN 1% GEL) 100 Gm Gel..gram., 4 G TOP QID PRN for PAIN, #1 TUBE 1 Refill Prov:CRIS MONTGOMERY DNP, FNP- 11/06/17 Fluticasone/Vilanterol 100/25 Mcg/Inh (BREO ELLIPTA 100/25 MCG) 1 Each Aer.pow.ba, 1 INH INH QDAY, #1 INH 4 Refills Prov:CRIS MONTGOMERY DNP, FNP- 10/23/17 Ondansetron (ZOFRAN ODT) 4 Mg Tab.rapdis, 1 TAB PO Q12H PRN for NAUSEA, #8 TAB.GLENYS 3 Refills Prov:CRIS MONTGOMERY DNP, FNP- 05/29/17 Albuterol Sulfate (VENTOLIN HFA) 18 Gm Inh, 2 PUFF INH Q4-6H PRN for CONGESTION, #1 INH 5 Refills Prov:CRIS MONTGOMERY DNP, FNP- 04/14/17 Albuterol Sulfate 0.083% (ALBUTEROL SULFATE 0.083%) 2.5 Mg/3 Ml Vial.neb, 2.5 MG INH 2-3XD PRN for WHEEZING, #30 INH 0 Refills Prov:CRIS MONTGOMERY DNP [employer]- 03/24/17 Reported Medications Acetaminophen (TYLENOL) 325 Mg Tablet, 325 MG PO PRN, TAB 12/26/16 Discontinued Scripts Guaifenesin/Codeine Phosphate (Codeine-Guaifen 10-100 mg/5 ml) 120 Ml Liquid, 1- 2 TSP PO Q6H PRN for COUGH, #120 ML 0 Refills Prov:CRIS MONTGOMERY DNP, FNP- 12/23/17 Levofloxacin 750 Mg Tab (LEVOFLOXACIN 750 MG TAB) 750 Mg Tablet, 1 TAB PO QDAY for 5 Days, #5 TAB 0 Refills Prov:CRIS MONTGOMERY DNP, FNP- 12/23/17 Prednisone (PREDNISONE) 20 Mg Tablet, 1 TAB PO BID for 5 Days, #10 TAB 0 Refills Prov:CRIS MONTGOMERY DNP [facility]- 12/23/17 Hx Smoking: Yes (1 CIGARETT PER DAY FOR 1 YEAR. ) Smoking Status: Former Smoker Exposure to Second Hand Smoke?: Yes ([facility] SMO[facility]) Hx Substance Use Disorder: No Hx Alcohol Use: No Constitutional Vital Sign - Last 24 Hours 01/14/18 08:31 Temp 97.7 Pulse 83 Resp 18 B/P (MAP) 137/85 Pulse Ox 90 O2 Delivery Room Air Physical Exam General Appearance: The patient is alert, has no immediate need for airway protection and no signs of toxicity. NAD Eyes: Pupils equal and round no pallor or injection. ENT, Mouth: + cotton swab retained in right ear with no erythema or drainage Respiratory: There are no retractions, lungs are clear to auscultation. Cardiovascular: Regular rate and rhythm. Gastrointestinal: Abdomen is soft and non tender, no masses, bowel sounds normal. Neurological: No focal deficits Skin: Warm and dry, no rashes. Musculoskeletal: Neck is supple non tender. Extremities are nontender, nonswollen and have full range of motion. DIFFERENTIAL DIAGNOSIS: After history and physical exam differential diagnosis was considered for retained foreign body in the ear, pneumonia, bronchitis, asthma exacerbation, allergies Medical Decision Making ED Course/Re-evaluation ED Course Patient is a 42-year-old female here with complaints of right ear foreign body with cotton swab since this morning, cough which is been persistent in spite of treatment with prednisone for asthma exacerbation. Initial attempt with ear curet for removal of cotton foreign body was unsuccessful so bayonet forceps are utilized to successfully remove cotton swab in its entirety. Ear canal was nonerythematous with no drainage or tympanic membrane bulging or erythema. Lungs were clear to auscultation, SPO2 levels were normal on room air. Since the patient reports persistent cough, chest x-ray was completed to rule out pneumonia or intrapulmonary process. Chest x-ray was normal. Patient likely has residual symptoms from her prior doubt of bronchitis. She did complete a course of Levaquin, no further antibiotics indicated at this time. Patient was advised to follow closely with her PCP for outpatient monitoring. Decision to Disposition Date: Jan 14, 2018 Decision to Disposition Time: 09:15 Depart Departure Latest Vital Signs Vital Signs Date Time Temp Pulse Resp B/P (MAP) Pulse Ox O2 Delivery O2 Flow Rate FiO2 01/14/18 08:31 97.7 83 18 137/85 90 Room Air Impression: Primary Impression: Ear foreign body Additional Impression: Cough Condition: Improved Disposition: HOME OR SELF-CARE Referrals: CRIS MONTGOMERY DNP, [employer]-BC (PCP) Patient Instructions: Acute Cough (ED) Additional Instructions: Please continue your current course of treatment including her inhalers. Please follow-up with her family doctor in the next 3 days for outpatient reevaluation. Please return promptly if you develop worsening shortness breath, chest pains, productive cough, fevers, abdominal pain, nausea. Please drink plenty of water. Problem Qualifiers FOX SUTTON DO Jan 14, 2018 08:30
--- NOTE | 2018-01-14 09:10 | RADIOLOGY IMAGING REPORT ---
FACILITY: [facility] PATIENT NAME: Marianna Glover : 1975 MR: [id number] V: [id number] EXAM DATE: ORDERING PHYSICIAN: FOX SUTTON TECHNOLOGIST: Location: [facility] [place] Patient: Marianna Glover : 1975 Visit/Account:[id number] Date of Sevice: 01/14/2018 Chest 2 views: HISTORY: Cough, shortness of breath. COMPARISON: None. FINDINGS: Frontal and lateral chest: Cardiomediastinal silhouette is within normal limits. There is no infiltrate or pleural effusion. No pneumothorax. Pulmonary vasculature is normal. Mild degenerative changes present in the thoracic spine. IMPRESSION: No evidence of acute cardiopulmonary abnormality. Report Dictated By: Teresita Barboza MD at 01/14/2018 9:03 AM Report E-Signed By: Teresita Barboza MD at 01/14/2018 9:04 AM WSN:[email or web address]
[2018-01-14 09:25] VITALS: BP 127/81
== END 2018-01-14 09:30 | disposition home or self-care (01) ==
LOC: ER 08:33
DX: T16.1XXA Foreign body in right ear, initial encounter (principal); R05 Cough
CPT/HCPCS: 69200; 71046; 99283

== ENCOUNTER 2018-02-05 13:53 | Emergency (ER) | payer BC ==
[2017-02-24 09:10] VITALS: Wt 151.5 kg
--- NOTE | 2018-02-05 14:10 | ER Report ---
History and Physical Time Seen By MD: 14:09 HPI/ROS CHIEF COMPLAINT: Chest pain HISTORY OF PRESENT ILLNESS: This is a 43-year-old female presents to the emergency department for chest pain. Patient states that about one hour prior to arrival she developed some anterior chest pain. Patient states she was sitting on her couch suddenly developed the pain. Patient was seen by her primary care provider today, had a chest x-ray which was negative for any acute cardiopulmonary process. Patient states she's had a cough roughly for a month, semi-productive at times. No fevers or chills. No nausea or vomiting. No diarrhea. No rashes or headaches. Does have some shortness of breath, patient also has low oxygen saturation in the emergency department at about 88%, patient states this is pretty typical for her. REVIEW OF SYSTEMS: Constitutional: No fever, no chills. Eyes: No discharge. ENT: No sore throat. Cardiovascular: As above. Respiratory: As above. Gastrointestinal: No abdominal pain, no vomiting. Genitourinary: No hematuria. Musculoskeletal: No back pain. Skin: No rashes. Neurological: No headache. Allergies: Coded Allergies: hydrocodone (Verified Allergy, Severe, ANAPHYLAXIS, 01/14/18) nickel (Verified Allergy, Unknown, RASH, 01/14/18) latex (Verified Adverse Reaction, Unknown, RASH, 01/14/18) Uncoded Allergies: HAYFEVER (Allergy, Mild, CONGESTION, SNEEZING, 12/26/16) Home Meds Active Scripts Benzonatate (BENZONATATE) 200 Mg Capsule, 200 MG PO TID PRN for COUGH, #15 CAP Prov:VINCENZO PALAFOX [facility]- 02/05/18 Methylprednisolone (METHYLPREDNISOLONE) 4 Mg Tab.ds.pk, 4 MG PO DIRECTED, #1 PACK 0 Refills Prov:VINCENZO PALAFOX [facility]- 02/05/18 Guaifenesin/Codeine Phosphate (Codeine-Guaifen 10-100 mg/5 ml) 120 Ml Liquid, 1- 2 TSP PO Q6H PRN for COUGH, #120 ML 0 Refills Prov:CRIS MONTGOMERY DNP, [facility]- 02/05/18 Sumatriptan Succinate (IMITREX) 50 Mg Tablet, 50 MG PO ONCE, #9 TAB 3 Refills Take 1 tablet at onset of migraine. Repeat 1 tablet in 2 hours if necessary. Do not take more than 2/24 hours. Prov:CRIS MONTGOMERY DNP, FNP-BC 12/23/17 Fluoxetine Hcl (PROZAC) 20 Mg Capsule, 1 CAP PO QDAY for 90 Days, #90 CAPSULE 0 Refills Prov:CRIS MONTGOMERY DNP, FNP- 12/02/17 Levothyroxine Sodium (SYNTHROID) 150 Mcg Tablet, 175 MCG PO QDAY for 90 Days, #90 TAB Prov:CRIS MONTGOMERY DNP, FNP-BC 12/02/17 Diclofenac Sodium 1% Gel (VOLTAREN 1% GEL) 100 Gm Gel..gram., 4 G TOP QID PRN for PAIN, #1 TUBE 1 Refill Prov:CRIS MONTGOMERY DNP, FNP-BC 11/06/17 Fluticasone/Vilanterol 100/25 Mcg/Inh (BREO ELLIPTA 100/25 MCG) 1 Each Aer.pow.ba, 1 INH INH QDAY, #1 INH 4 Refills Prov:CRIS MONTGOMERY DNP, FNP-BC 10/23/17 Ondansetron (ZOFRAN ODT) 4 Mg Tab.rapdis, 1 TAB PO Q12H PRN for NAUSEA, #8 TAB.GLENYS 3 Refills Prov:CRIS MONTGOMERY DNP, FNP- 05/29/17 Albuterol Sulfate (VENTOLIN HFA) 18 Gm Inh, 2 PUFF INH Q4-6H PRN for CONGESTION, #1 INH 5 Refills Prov:[facility]IS MONTGOMERY DNP, [facility] 04/14/17 Albuterol Sulfate 0.083% (ALBUTEROL SULFATE 0.083%) 2.5 Mg/3 Ml Vial.neb, 2.5 MG INH 2-3XD PRN for WHEEZING, #30 INH 0 Refills Prov:CRIS MONTGOMERY DNP, FNP- 03/24/17 Reported Medications Acetaminophen (TYLENOL) 325 Mg Tablet, 325 MG PO PRN, TAB 12/26/16 Past Medical/Surgical History The patient has a past medical and surgical history of headaches frequently gets bronchitis, asthma, uses inhaler and nebulizer, pneumonia, IBS, gallbladder disease, cervix biopsy, polyps excised, fracture of the right arm and right ankle, low back pain, glasses and contacts, Graves' disease, thyroidectomy, depression, ADHD, appendectomy, wisdom teeth extraction. Reviewed Nurses Notes: Yes Hx Smoking: Yes (1 CIGARETT PER DAY FOR 1 YEAR. ) Smoking Status: Former Smoker Exposure to Second Hand Smoke?: Yes ([facility] [place] [facility]) Hx Substance Use Disorder: No Hx Alcohol Use: No Constitutional Vital Sign - Last 24 Hours 02/05/18 02/05/18 02/05/18 02/05/18 13:59 14:08 14:23 14:25 Pulse 87 89 90 Resp 20 15 18 B/P (MAP) 139/85 (103) 139/85 Pulse Ox 88 92 O2 Delivery Room Air 02/05/18 02/05/18 02/05/18 02/05/18 14:25 14:31 14:53 14:58 Pulse 92 91 92 Resp 18 14 21 Pulse Ox 92 91 87 O2 Delivery Room Air Physical Exam General Appearance: The patient is alert, has no immediate need for airway protection and no signs of toxicity. Eyes: Pupils equal and round no pallor or injection. ENT, Mouth: Mucous membranes are moist. Respiratory: There are no retractions, lungs are clear to auscultation. Cardiovascular: Regular rate and rhythm, no murmurs, clicks or rubs. Midsternal anterior chest pain reproducible with palpation. Gastrointestinal: Obese Abdomen, soft and non tender, no masses, bowel sounds normal. Neurological: Alert and oriented 4. Moving all extremities. Following all commands. No focal neuro deficits. Skin: Warm and dry, no rashes. Musculoskeletal: Neck is supple non tender. Extremities are nontender, nonswollen and have full range of motion. DIFFERENTIAL DIAGNOSIS: After history and physical exam differential diagnosis was considered for chest pain including but not limited to myocardial ischemia, pericarditis pulmonary embolus, chest wall pain, pleural inflammation and pulmonary infectious causes. Medical Decision Making Data Points Result Diagram: 02/05/18 1421 02/05/18 1421 Laboratory Hematology Test 02/05/18 14:21 Red Blood Count 5.63 M/uL (4.17-5.56) Mean Corpuscular Volume 76.2 fL (80.0-96.0) Mean Corpuscular Hemoglobin 24.5 pg (26.0-33.0) Mean Corpuscular Hemoglobin Concent 32.2 g/dL (32.0-36.0) Red Cell Distribution Width 17.2 % (11.5-14.5) Mean Platelet Volume 8.7 fL (7.2-11.1) Neutrophils (%) (Auto) 77.5 % (39.4-72.5) Lymphocytes (%) (Auto) 13.4 % (17.6-49.6) Monocytes (%) (Auto) 5.6 % (4.1-12.4) Eosinophils (%) (Auto) 2.4 % (0.4-6.7) Basophils (%) (Auto) 1.1 % (0.3-1.4) Nucleated RBC Relative Count (auto) 0.0 /100WBC Neutrophils # (Auto) 7.6 K/uL (2.0-7.4) Lymphocytes # (Auto) 1.3 K/uL (1.3-3.6) Monocytes # (Auto) 0.5 K/uL (0.3-1.0) Eosinophils # (Auto) 0.2 K/uL (0.0-0.5) Basophils # (Auto) 0.1 K/uL (0.0-0.1) Nucleated RBC Absolute Count (auto) 0.00 K/uL D-Dimer Quantitative (PE/DVT) 0.50 ug/ml (0-0.50) Sodium Level 135 mmol/L (137-145) Potassium Level 4.5 mmol/L (3.5-5.0) Chloride Level 103 mmol/L (98-107) Carbon Dioxide Level 25 mmol/L (22-31) Blood Urea Nitrogen 9 mg/dl (7-18) Creatinine 1.10 mg/dl (0.52-1.04) Glomerular Filtration Rate Calc 54.5 Random Glucose 97 mg/dl (75-110) Calcium Level 8.4 mg/dl (8.4-10.2) Total Bilirubin 0.6 mg/dl (0.2-1.3) Aspartate Amino Transf (AST/SGOT) 15 U/L (0-35) Alanine Aminotransferase (ALT/SGPT) 18 U/L (0-56) Alkaline Phosphatase 84 U/L (0-126) Troponin I < 0.012 ng/ml Total Protein 7.1 g/dl (6.3-8.2) Albumin 3.6 g/dl (3.5-5.0) Chemistry Test 02/05/18 14:21 White Blood Count 9.8 k/uL (4.5-11.0) Red Blood Count 5.63 M/uL (4.17-5.56) Hemoglobin 13.8 g/dL (12.0-16.0) Hematocrit 43.0 % (34.0-47.0) Mean Corpuscular Volume 76.2 fL (80.0-96.0) Mean Corpuscular Hemoglobin 24.5 pg (26.0-33.0) Mean Corpuscular Hemoglobin Concent 32.2 g/dL (32.0-36.0) Red Cell Distribution Width 17.2 % (11.5-14.5) Platelet Count 252 K/uL (150-450) Mean Platelet Volume 8.7 fL (7.2-11.1) Neutrophils (%) (Auto) 77.5 % (39.4-72.5) Lymphocytes (%) (Auto) 13.4 % (17.6-49.6) Monocytes (%) (Auto) 5.6 % (4.1-12.4) Eosinophils (%) (Auto) 2.4 % (0.4-6.7) Basophils (%) (Auto) 1.1 % (0.3-1.4) Nucleated RBC Relative Count (auto) 0.0 /100WBC Neutrophils # (Auto) 7.6 K/uL (2.0-7.4) Lymphocytes # (Auto) 1.3 K/uL (1.3-3.6) Monocytes # (Auto) 0.5 K/uL (0.3-1.0) Eosinophils # (Auto) 0.2 K/uL (0.0-0.5) Basophils # (Auto) 0.1 K/uL (0.0-0.1) Nucleated RBC Absolute Count (auto) 0.00 K/uL D-Dimer Quantitative (PE/DVT) 0.50 ug/ml (0-0.50) Glomerular Filtration Rate Calc 54.5 Calcium Level 8.4 mg/dl (8.4-10.2) Total Bilirubin 0.6 mg/dl (0.2-1.3) Aspartate Amino Transf (AST/SGOT) 15 U/L (0-35) Alanine Aminotransferase (ALT/SGPT) 18 U/L (0-56) Alkaline Phosphatase 84 U/L (0-126) Troponin I < 0.012 ng/ml Total Protein 7.1 g/dl (6.3-8.2) Albumin 3.6 g/dl (3.5-5.0) Coagulation Test 02/05/18 14:21 D-Dimer Quantitative (PE/DVT) 0.50 ug/ml EKG/Imaging EKG Interpretation 12 lead EKG: Time of EKG 1402. Rhythm: Normal sinus rhythm, ventricular rate 81 bpm. [place]: normal QRS: Low voltage QRS. ST segments: No ST depression or elevation identified. No significant changes from the 02/26/2017 EKG. Imaging PATIENT NAME: Marianna Glover : 1975 MR: [id number] V: [id number] EXAM DATE: [id number] ORDERING PHYSICIAN: CRIS MONTGOMERY TECHNOLOGIST: Location: [facility] Patient: Marianna Glover : 1975 Visit/Account:[id number] Date of Sevice: 02/05/2018 CHEST, 2 Views HISTORY: Cough, wheezing, and shortness of breath. COMPARISON: 01/14/2018 FINDINGS: Heart size is normal. Normal size thoracic aorta. Mediastinum and moon are normal. Lungs are clear of infiltrate and atelectasis. There is no pneumothorax or pleural effusion. There are mild degenerative disc changes in the lower thoracic spine. IMPRESSION: No radiographic evidence of an acute chest process. Report Dictated By: Daniela Cornelius MD at 02/05/2018 10:44 AM Report E-Signed By: Daniela Cornelius MD at 02/05/2018 10:45 AM WSN:[id number] ED Course/Re-evaluation Clinical Indication for ER IV: IV Access ED Course The patient was admitted to a room. A history and physical were obtained. Differential diagnoses were considered. IV was started. A CBC, CMP, troponin and d-dimer were obtained. Patient had a negative chest x-ray earlier today at her primary care provider's office.CBC showing RBC 5.63, percent neutrophils 77.5, chemistry showing sodium 135, creatinine 1.10, negative troponin, negative d- dimer. Patient was given a DuoNeb while in the emergency department, patient states she did have some relief of her coughing as well as the chest discomfort. I do not feel that the discomfort she is experiencing is ACS, I do believe this is more of a costochondritis discomfort secondary to continued coughing. I did review this with the patient. I did send her home with a prescription for Medrol Dosepak as well as benzonatate to see if this will help with her cough. She has albuterol MDIs and nebulizers at home. Patient was struck to to follow-up with her primary care provider for reevaluation. Patient expressed understanding, was in agreement with this plan of care and discharged home. Decision to Disposition Date: Feb 05, 2018 Decision to Disposition Time: 15:00 Depart Departure Latest Vital Signs Vital Signs Date Time Temp Pulse Resp B/P (MAP) Pulse Ox O2 Delivery O2 Flow Rate FiO2 02/05/18 14:58 92 21 87 02/05/18 14:25 Room Air 02/05/18 14:08 139/85 Impression: Primary Impression: Viral syndrome Additional Impression: Cough in adult Condition: Improved Disposition: HOME OR SELF-CARE Referrals: CRIS MONTGOMERY DNP, [facility]- (PCP) New Scripts Benzonatate (BENZONATATE) 200 Mg Capsule 200 MG PO TID PRN for COUGH, #15 CAP Prov: VINCENZO PALAFOX [facility]- 02/05/18 Methylprednisolone (METHYLPREDNISOLONE) 4 Mg Tab.ds.pk 4 MG PO DIRECTED, #1 PACK 0 Refills Prov: VINCENZO PALAFOX [facility]- 02/05/18 Patient Instructions: Acute Cough (ED), Viral Syndrome (ED) Additional Instructions: Take the Medrol Dosepak as directed. Benzonatate for cough. Drink plenty of fluids. Get plenty of rest. If no improvement in the next 1-2 weeks please follow-up with your primary care provider for reevaluation. There is no indication for antibiotics today. Return to the emergency department for any concerns or worsening symptoms. Problem Qualifiers VINCENZO PALAFOX [facility]- Feb 05, 2018 14:10
[2018-02-05] MEDS ORDERED: ALBUTEROL/IPRATROPIUM 3 ML NEB NEB ONE (14:15)
[2018-02-05] MEDS ORDERED: ASPIRIN 81 MG CHEW PO ONE (14:15)
[2018-02-05 14:29] LABS: PLATELET COUNT, AUTOMATED 252 K/uL (150-450)
--- NOTE | 2018-02-05 14:34 | EKG ---
FACILITY: [facility] [place] PATIENT NAME: IZZY CORNEJO : [id number] MR: [id number] V: [id number] EXAM DATE: ORDERING PHYSICIAN: VINCENZO PALAFOX TECHNOLOGIST: ANN Mercer Reason : CP Blood Pressure : / mmHG Vent. Rate : 081 BPM Atrial Rate : 081 BPM P-R Int : 136 ms QRS Dur : 078 ms QT Int : 402 ms P-R-T Axes : 024 018 026 degrees QTc Int : 466 ms Normal sinus rhythm Normal ECG When compared with ECG of 26-FEB-2017 11:46, No significant change was found Confirmed by RAUL LIZ ([id number]) on 02/05/2018 5:18:43 PM Referred By: Confirmed By:RAUL LIZ
[2018-02-05] MEDS ORDERED: METH4TAB66 PO (15:02)
[2018-02-05] MEDS ORDERED: BENZ200C15 PO (15:02)
[2018-02-05 15:10] VITALS: BP 129/77
== END 2018-02-05 15:15 | disposition home or self-care (01) ==
LOC: ER 14:21
DX: B34.9 Viral infection, unspecified (principal); R05 Cough
CPT/HCPCS: 84484; 85025; 85379; 93005; 94640; 99283; J7620; 82040; 82247; 82310; 82374; 82435; 82565; 82947; 84075; 84132; 84155; 84295; 84450; 84460; 84520

== ENCOUNTER → 2018-03-29 | Outpatient (CLI) | payer BC ==
[2017-02-24 09:10] VITALS: BMI 45.0
[~2018-03-29] MED LIST changes: +BENZ200C15 PO; +HYDR12.561 PO; +IBUP800T37 PO; +METH4TAB66 PO
[2018-03-29 16:43] LABS: PLATELET COUNT, AUTOMATED 293 K/uL (150-450)
--- NOTE | 2018-03-29 17:09 | RADIOLOGY IMAGING REPORT ---
FACILITY: [facility] PATIENT NAME: Marianna Glover : 1975 MR: [id number] V: [id number] EXAM DATE: ORDERING PHYSICIAN: CRIS MONTGOMERY TECHNOLOGIST: [place] [facility] [place]na Glover : 1975 Visit/Account:[id number] Date of Sevice: 03/29/2018 KNEE 4 VIEW LEFT Indication: Pain Comparison: None available Findings: No evidence of fracture, dislocation, or acute osseous abnormality of the left knee. There is mild tricompartmental joint space narrowing. No significant osteophyte formation is noted b ut there is chondrocalcinosis noted within the medial and lateral compartments. Mild spurring of the tibial spines is present. No evidence of joint effusion. There is no focal soft tissue abnormality. No evidence of radiopaque foreign body. IMPRESSION: 1.No acute osseous abnormality of the left knee . 2. Chondrocalcinosis with mild bilateral tricompartmental degenerative change Report Dictated By: Prabhu Holloway at 03/29/2018 5:03 PM Report E-Signed By: Prabhu Holloway at 03/29/2018 5:04 PM WSN:[email or web address]
== END ==
LOC: LAB 16:14
PROVIDERS: ATTEND Nurse Practitioner Primary Care
DX: M94.262 Chondromalacia, left knee (principal); M17.12 Unilateral primary osteoarthritis, left knee; R25.2 Cramp and spasm; E03.9 Hypothyroidism, unspecified; R60.9 Edema, unspecified
CPT/HCPCS: 36415; 73564; 82040; 82247; 82310; 82374; 82435; 82565; 82947; 83880; 84075; 84132; 84155; 84295; 84443; 84450; 84460; 84520; 85025

== ENCOUNTER → 2018-04-07 | Outpatient (CLI) | payer BC ==
[2017-02-24 09:10] VITALS: BMI 45.0
[~2018-04-07] MED LIST changes: +GADOBENATE 529MG/1ML 15ML VIAL IVP ONE
--- NOTE | 2018-04-07 10:24 | RADIOLOGY IMAGING REPORT ---
FACILITY: [facility] [place] PATIENT NAME: Marianna Glover : 1975 MR: [id number] V: [id number] EXAM DATE: ORDERING PHYSICIAN: CRIS MONTGOMERY TECHNOLOGIST: Location: [facility] Patient: Marianna Glover : 1975 Visit/Account:[id number] Date of Sevice: 04/07/2018 An MRI of the brain was attempted. Due to the patient's body habitus, the study could not be performe d. No diagnostic images were generated. Report Dictated By: Jeffrey Rowe at 04/07/2018 10:17 AM Report E-Signed By: Jeffrey Rowe at 04/07/2018 10:18 AM WSN:[email or web address]
== END ==
LOC: MRI 01:09
PROVIDERS: ATTEND Nurse Practitioner Primary Care
DX: F80.81 Childhood onset fluency disorder (principal)
CPT/HCPCS: A9577

== ENCOUNTER → 2018-07-23 | Outpatient (CLI) | payer BC ==
[2017-02-24 09:10] VITALS: BMI 45.0
[~2018-07-23] MED LIST changes: +DIAZ-308 PO; -GADOBENATE 529MG/1ML 15ML VIAL IVP ONE; +IPRA3AMP10 IH; -OMEP-125 PO; +OMEP-126 PO; +ONDA4TAB9 PO; +PHEN-578 PO; +PHEN15CA69 PO
== END ==
LOC: LAB 09:04
PROVIDERS: ATTEND Nurse Practitioner Primary Care
DX: R60.9 Edema, unspecified (principal)
CPT/HCPCS: 36415; 82040; 82247; 82310; 82374; 82435; 82565; 82947; 84075; 84132; 84155; 84295; 84450; 84460; 84520

== ENCOUNTER 2018-08-27 07:00 | Outpatient (RCR) | payer BC ==
[2017-02-24 09:10] VITALS: BMI 45.0
--- NOTE | 2018-07-14 12:00 | PT INITIAL EVALUATION ---
MEDICAL DIAGNOSIS: Primary Osteoarthritis of Left Knee TREATMENT DIAGNOSIS: Patellofemoral Syndrome, Primary Osteoarthritis of Left Knee, Generalized W DATE OF ONSET: 07/14/18 SUBJECTIVE: Marianna is a 43 year old female presenting to physical therapy following chronic L knee pain that has been going on since she was a child. Pt reports that her L knee always seemed to bother her and had lateral tracking. Pain recently was increased and following consulting and orthopaedic MD she was referred to PT. Pt reports that she has done PT for it before but didn't have much improvement. If PT does not work this time she reports that she will likely get an injection below the knee cap or possibly a total knee. However, before she can get a total knee she has been instructed to loose weight. Pt recently had an MRI in May revealing osteoarthritis under the patella with bone spur formation. Pain is diffuse along the anterior knee. 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 Pt is obese. ROM: Knee ROM: B 8-0-122 Strength: LE MMT: Hip: flexion: 4-/5 L, 4/5 R, ext: 4/5 B, Abd: 4-/5 L, 4/5 R, add: 4+/5. Knee: ext: 4-/5, L, 4/5 R, flex: 4/5 L, 4+/5 R. Ankle: DF: 5/5 B, PF: 5-/5 L, 5/5 R. Palpation: Pt is ttp along the medial meniscus/joint line as well as the lateral suprapatellar region. Special Tests: 5/5 SAQ with lateral tracking following initial lateral position L. R 5/5 good alignment and tracking following slight initial lateral position. Mobility: Pt is able to perform 5/5 sit to stands from a high plinth without UE support but with L medial knee collapse. Gait: Decreased stance phase on L LE reverse Trendelenburg gait pattern. ASSESSMENT: Marianna shows signs and symptoms consistent with L patellofemoral syndrome with associated osteoarthritis and generalized weakness of B LE. Physical therapy is indicated to address the above listed deficits to improve pt function with ADL's and community mobility as well as assist in weight loss goals. Short Term Goals In 3 weeks pt will have good patellar alignment on the L with 5/5 SAQ sets for improved function with ADL's. In 6 weeks pt will improve quad and lateral hip strength B to 4+/5 for improved function with ADL's. In 6 weeks pt will be able to perform 5 sit to stand transfers in a row without medial knee collapse or use of UE for improved functional mobility. In 6 weeks pt will be able to tolerate 15 minutes of biking for improved knee function and independent progression towards weight loss. Patient's Goals Decrease L knee pain, loose weight. PLAN: Patient to be seen for Manual Therapy/STM/MET Strengthening/condition Ice/Heat Range of Motion Ultrasound Stretching Iontophoresis Neuromuscular Re-ed Closed Chain Program Electrical Stim Posture/Body mechanics Gait Trg/Balance Trg Home Exercise Program [facility]./Manual Traction Therapeutic Activities 3x/Week for 6 Weeks If you have any questions, comments, or concerns about this report or plan, please contact me at . Thank you, Jaye López, PT, DPT, CLT Referring Provider Signature: Date: MTDD
--- NOTE | 2018-08-26 07:27 | PT PLAN OF CARE ---
Physician: Chidi Conroy MD Patient is being seen: 2-3x/Week Therapist: Jaye López, PT, DPT, CLT Medical Diagnosis: Primary Osteoarthritis of Left Knee Treatment Diagnosis: Patellofemoral Syndrome, Primary Osteoarthritis of Left Knee, Generalized W Date of Onset: 07/14/18 Date of Initial Evaluation: 07/14/18 Date patient was last seen: 08/25/18 Number of treatments: 14 Number of cancellations/No shows: 3 INTERVENTIONS: Manual Therapy/STM/MET Strengthening/condition Ice/Heat Range of Motion Ultrasound Stretching Iontophoresis Neuromuscular Re-ed Closed Chain Program Electrical Stim Posture/Body mechanics Gait Trg/Balance Trg Home Exercise Program Mech./Manual Traction Therapeutic Activities GOALS: In 3 weeks pt will have good patellar alignment on the L with 5/5 SAQ sets for improved function with ADL's. MET In 6 weeks pt will improve quad and lateral hip strength B to 4+/5 for improved function with ADL's. In 6 weeks pt will be able to perform 5 sit to stand transfers in a row without medial knee collapse or use of UE for improved functional mobility. MET In 6 weeks pt will be able to tolerate 15 minutes of biking for improved knee function and independent progression towards weight loss. PATIENT'S GOAL: Decrease L knee pain, loose weight. Status of Patient's Goals: 2/4 Goals MET Patient Compliance: Good Prognosis: Good Reasons for continuing therapy: Marianna shows excellent progress with PT at this time with good patellar alignment and improved quad and hip strength for supporting posture. Pt shows improved endurance with exercise and is able to start to progress towards independent HEP for weight loss. Further PT to continue with strengthening progress as well as transition towards independent exercise. ROM: Knee ROM: B 8-0-122 Strength: LE MMT: Hip: flexion: 4-/5 L, 4/5 R, ext: 4/5 B, Abd: 4-/5 L, 4/5 R, add: 4+/5. Knee: ext: 4-/5, L, 4/5 R, flex: 4/5 L, 4+/5 R. Ankle: DF: 5/5 B, PF: 5-/5 L, 5/5 R. Palpation: Pt is ttp along the medial meniscus/joint line as well as the lateral suprapatellar region. Mobility: Pt is able to perform 5/5 sit to stands from a high plinth without UE support and good knee alignment. If you have any questions, please feel free to contact me at [phone]. Thank you, Jaye López, PT, DPT, CLT Referring Provider Signature: Date: MTDD
--- NOTE | 2018-08-27 09:17 | PT PLAN OF CARE ---
Physician: Chidi Conroy MD Patient is being seen: 2-3x/Week Therapist: Jaye López, PT, DPT, CLT Medical Diagnosis: Primary Osteoarthritis of Left Knee Treatment Diagnosis: Patellofemoral Syndrome, Primary Osteoarthritis of Left Knee, Generalized W Date of Onset: 07/14/18 Date of Initial Evaluation: 07/14/18 Date patient was last seen: 08/27/18 Number of treatments: 15 Number of cancellations/No shows: 3 INTERVENTIONS: Manual Therapy/STM/MET Strengthening/condition Ice/Heat Range of Motion Ultrasound Stretching Iontophoresis Neuromuscular Re-ed Closed Chain Program Electrical Stim Posture/Body mechanics Gait Trg/Balance Trg Home Exercise Program Mech./Manual Traction Therapeutic Activities GOALS: In 3 weeks pt will have good patellar alignment on the L with 5/5 SAQ sets for improved function with ADL's. MET In 6 weeks pt will improve quad and lateral hip strength B to 4+/5 for improved function with ADL's. MET In 6 weeks pt will be able to perform 5 sit to stand transfers in a row without medial knee collapse or use of UE for improved functional mobility. MET In 6 weeks pt will be able to tolerate 15 minutes of biking for improved knee function and independent progression towards weight loss. MET PATIENT'S GOAL: Decrease L knee pain, loose weight. Status of Patient's Goals: 4/4 Goals MET Patient Compliance: Good Prognosis: Good Reasons for discharge from therapy: Marianna is to discharge from physical therapy at this time secondary to completion of 4/4 functional goals. At the time of discharge pt shows excellent progress with good patellar alignment and improved quad and hip strength for supporting posture. Upon discharge pt is to continue with quad strengthening as well as progression towards weight loss goals with independent HEP. ROM: Knee ROM: B 8-0-122 Strength: LE MMT: Hip: flexion: 5-/5 L, 5-/5 R, ext: 5/5 B, Abd: B 5/5, add: 5/5. Knee: ext: 5-/5, L, 5-/5 R, flex: 5-/5 L, 5-/5 R. Ankle: DF: 5/5 B, PF: 5- /5 L, 5/5 R. Mobility: Pt is able to perform 5/5 sit to stands from a high plinth without UE support and good knee alignment. If you have any questions, please feel free to contact me at [phone]. Thank you, Jaye López PT, DPT, CLT Referring Provider Signature: Date: MTDD
== END 2018-08-27 15:29 | disposition home or self-care (01) ==
LOC: PT 07:00
PROVIDERS: ATTEND Orthopaedic Surgery Adult Reconstructive Orthopaedic Surgery
DX: M17.12 Unilateral primary osteoarthritis, left knee (principal); R53.1 Weakness
CPT/HCPCS: 97161

== ENCOUNTER → 2018-09-16 | Outpatient (CLI) | payer BC ==
[2017-02-24 09:10] VITALS: BMI 45.0
== END ==
LOC: LAB 08:25
PROVIDERS: ATTEND Nurse Practitioner Primary Care
DX: E03.9 Hypothyroidism, unspecified (principal)
CPT/HCPCS: 36415; 84443